=== PATIENT | male | born 1965 | race Caucasian/White ===

== ENCOUNTER 2017-09-06 06:28 | Observation (INO) | payer OTHER, SELFPAY ==
[2017-09-06] VITALS (10 sets, daily range): BP systolic 103–155; BP diastolic 70–104; PULSE 79–106; RESP 16–26; TEMP 37.1–37.3; O2SAT 95–98; BMI 36.6; BMI 35.9
--- NOTE | 2017-09-06 06:50 | EKG12_ITS ---
Test Reason : CHEST PAIN Blood Pressure : / mmHG Vent. Rate : 104 BPM Atrial Rate : 104 BPM P-R Int : 152 ms QRS Dur : 096 ms QT Int : 340 ms P-R-T Axes : 031 018 012 degrees QTc Int : 447 ms Sinus tachycardia Otherwise normal ECG Confirmed by NISHANT BAKER, ELISEO ([id number]), publications editor PITER YUAN ([id number] on 09/09/2017 3:05:36 PM Referred By: NEERU Confirmed By:ELISEO DILLARD MD
--- NOTE | 2017-09-06 06:50 | RAD_ITS ---
STUDY: X-RAY CHEST REASON FOR EXAM: Male, 52 years old. Left-sided chest pain, arm pain TECHNIQUE: Single AP portable view of the chest. COMPARISON: None. FINDINGS: The lungs are clear and expanded. There is no demonstrated pleural abnormality. Normal size heart. Normal mediastinum and dax. Normal visualized pulmonary arteries. Normal visualized aortic arch and descending thoracic aorta. Normal visualized thoracic spine. Normal visualized ribs, clavicles, and shoulders. There is no demonstrated abnormality of the visualized soft tissue structures of the upper abdomen. RAD/Chest 1 View (Portable) IMPRESSION: No acute cardiopulmonary disease. Electronically Signed: Adrian Ibarra DO at 7:52 EDT , Service support ,
[2017-09-06 07:00] LABS: Absolute Lymphocyte Count 2.04 X10^3/ul (0.83-4.51); Absolute Neutrophil Count 8.8 X10^3/uL (2.0-7.7); Basophil# 0.03 X10^3/uL; Basophil% 0.2 % (0-1); Eosinophil# 0.13 X10^3/uL; Eosinophils% 1.1 % (0-5); Hematocrit 38.9 % (40-54); Hemoglobin 12.9 g/dl (13.0-16.5); Lymphocyte # 2.04 X10^3/ul (4.0); Lymphocyte % 16.8 % (19-41); Mean Corp Hgb Conc 33.2 g/gl (32-36); Mean Corpuscular Hgb 28.3 pg (27.0-32.0); Mean Corpuscular Volume 85.3 fL (80-94); Mean Platelet Vol. 10.8 fl (6.2-12.0); Monocyte# 1.11 X10^3/uL; Monocyte% 9.1 % (0-10); Neutrophil % 72.5 % (47-70); Platelet Count 227 K/mm3 (150-450); RBC Distribution Width CV 13.7 % (11.6-14.6); RBC Distribution Width SD 42.3 fl (35.1-43.9); Red Blood Count 4.56 M/mm3 (4.6-6.2); White Blood Count 12.2 K/mm3 (4.4-11.0)
[2017-09-06 07:01] LABS: POSITIVE COUNT NO; POSITIVE DIFFERENTIAL NO; POSITIVE MORPHOLOGY NO
--- NOTE | 2017-09-06 07:13 | ED.DCSUM_ITS ---
- ER Visit Summary Date of Service: 09/06/17 Chief Complaint: Chest pain History of Present Illness: The patient is a 52 M midsternal sharp chest pain radiating down his left arm awakening him at 2:30 AM. States became clammy therefore called EMS. Denies dyspnea or nausea. History of hypertension, diabetes, hypercholesterolemia, family history and dad sides with MIs. Denies tobacco history. No history of stress test. States pain in his arm is 7 out of 10, pain his chest is 5 out of 10. No PE risk factors. Does not take aspirin daily. Patient does report doing activities yesterday with lifting, however denies any pain with palpation in his chest. Physical Examination: General: Alert and oriented ?3, no acute distress HEENT: Normocephalic, atraumatic. Moist mucosa membranes Neck: supple, nontender. Cardiovascular: Regular rate and rhythm, no murmurs. No chest wall tenderness. Respiratory: Normal breath sounds, symmetric, no distress Abdomen: Soft, nontender, nondistended Extremities: Nontender, no edema, pulses intact ?4 Neuro: no focal neurological deficits. Test Results: EKG: Sinus rate of 105, no ST or T-wave changes. Emergency Department Course and Treatment: Patient evaluated, EKG sinus rate of 105. Given aspirin and nitro. Cardiac workup initiated. Pending labs and chest x-ray. Patient signed out to morning physician. With risk factors will likely need admission for further cardiac rule out. Treatment Plan: [] Disposition: Likely admission Impression: Acute chest pain This note was generated with [employer] dictation software. It may contain incorrect words, spelling, and punctuation that were not noted in review of the chart prior to signing ED Disposition - Plan for ED Patient: Chief Complaint: Chest Pain Referrals: Tammy Ruth NP-C [Primary Care Provider] -
[2017-09-06 07:34] LABS: Anion Gap 10 (5-15); BUN 23 mg/dL (7-18); BUN/Creat Ratio 18.4 RATIO (10-20); Chloride 99 mmol/L (98-107); Creatinine, Serum 1.25 mg/dL (0.70-1.30); EST Glomerular Filtration Rate 64 mL/min (>60); Est Glom Filt Rate - Afr Amer 78 mL/min (>60); Estimated Creatinine Clearance 78.12 ml/min; Glucose 223 mg/dL (74-106); Potassium 3.9 mmol/L (3.5-5.1); Sodium Level 137 mmol/L (136-145)
--- NOTE | 2017-09-06 08:49 | ED.RN ---
PT DENIES NEEDING PAIN MEDS AT THIS TIME
--- NOTE | 2017-09-06 08:51 | HP.PCM_ITS ---
Problem List (1) Chest pain Status: Acute (2) Hypertension Status: Chronic (3) Diabetes mellitus Status: Chronic Qualifiers: Diabetes mellitus type: type 2 Diabetes mellitus penitentiary insulin use: without superintendent terminal use Diabetes mellitus complication status: with unspecified complications Qualified Code(s): E11.8 - Type 2 diabetes mellitus with unspecified complications History of Present Illness Date of Admission: 09/06/17 Chief Complaint: Chest pain - 1 day The patient is a 52 year old M with PMHx of hypertension, Type 2 DM, Morbid obesity who comes in with complains of chest pain. 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 He went home with left shoulder and arm pain that was persistent and did not seem to go away. Pain was not worse with exertion, was not located in the anterior chest. Around 3 AM, pain woke him up from sleep, it was substernal, radiated into the neck, shoulder and run down on the left to the wrist and through to the back in the left shoulder area. He got concerned and called the EMS and he was brought to the ED. Vitals as taken by the ED EMS team shows slightly elevated blood pressure but improvement on repeat checks. In the emergency room his temperature 99.2 F, pulse rate is 106, respiratory to 20, he was saturating 98% on room air. Routine blood work showed a RBC count of 12.2, Hb of 12.9, platelet count of 227 , his chemistries were unremarkable. Troponins ?3 were negative. Admitting chest x-ray shows no acute cardiopulmonary disease. Past Medical History Past Medical History (Chronic Problems): Chronic Problems Hypertension (Chronic) Diabetes mellitus (Chronic) Allergies No Known Allergies Allergy (Verified 09/06/17 06:32) Home Medications: Ambulatory Orders Medication Instructions Recorded Aspirin E.C. [Ecotrin] 81 mg PO DAILY@0800 #30 tab 09/06/17 Lisinopril/Hydrochlorothiazide 1 tab PO DAILY 09/06/17 [Zestoretic 20-12.5 mg Tablet] Metformin HCl [Glucophage] 1,000 mg PO BIDCM 09/06/17 Surgical History: no surgical history Psychiatric History: No pertinent psych hx Lives: With Family Smoking Status: Never smoker Tobacco Use: Non-smoker Alcohol: None Drugs: None - *Family History Maternal History Items: No pertinent history Paternal History Items: Heart Disease Review of Systems Constitutional: Denies: Anorexia, Chills, Fever, Malaise, Weakness, Weight Change Eyes: Denies: Blurred vision, Cataracts, Conjunctivae Inflammation, Double vision, Drainage HEENT: Denies: Difficulty Hearing, Difficulty Swallowing, Head Aches, Hearing Changes, Sinus Congestion, Sinus Drainage Cardiovascular: Denies: Chest Pain, Claudication, Chest Pressure, Orthopnea, Palpitations, Paroxysmal Noc. Dyspnea Respiratory: Denies: Cough, Hemoptysis, Shortness of breath at rest, Shortness of breath upon exertion, Sputum production Gastrointestinal: Denies: Abdominal Pain, Constipation, Hematemesis, Nausea, Vomiting Genitourinary: Denies: Dysuria Musculoskeletal: Denies: Joint Pain, Joint stiffness, Joint swelling, Joint Tenderness Skin: Denies: Pruritis, Rash, Wounds Neurological: Denies: Difficulty swallowing, Focal weakness, Numbness, Tingling Psychiatric: Denies: Anxiety, Depression, Homicidal Ideations, Suicidal Ideations Hematologic/ Lymphatic: Denies: Easy Bruising, Easy Bleeding VTE Information - Inpt Only VTE Present on Admission: No VTE Pharm Prophylaxis ordered?: Yes - Physical Exam General: Alert, Oriented x3, Cooperative, No apparent distress HEENT: Atraumatic, PERRLA, EOMI, Normocephalic Neck: Supple Lungs: Clear to auscultation, Normal air movement Cardiovascular: Regular rate, Regular Rhythm, Normal S1, Normal S2, No murmurs Abdomen: Bowel Sounds Present, Soft, Non Tender, Non-Distended, No Hepato- splenomegaly Extremities: No edema Skin: No rashes, No breakdown Musculoskeletal: No Tenderness to Palpation of Joints or Extremities Lymphatic: No Cervical, Supraclavicular, or Inguinal Adenopathy Neurological: Cranial nerves II-XII grossly intact, Neuro grossly intact Psych/Mental Status: Normal Affect, Appropriate Vital Signs Temp Pulse Resp BP Pulse Ox 99.2 F H 98 25 H 134/80 H 95 09/06/17 06:29 09/06/17 08:08 09/06/17 08:08 09/06/17 08:08 09/06/17 08:08 Oxygen Flow Rate (L/min) 2 Oxygen Delivery Method Room Air Weight: 125.9 kg Body Mass Index (BMI) 36.6 Laboratory Tests Past 24 Hrs 09/06/17 09/06/17 06:40 06:40 WBC 12.2 H RBC 4.56 L Hgb 12.9 L Hct 38.9 L MCV 85.3 MCH 28.3 MCHC 33.2 RDW 13.7 RDW Differential 42.3 Plt Count 227 MPV 10.8 Immature Gran % (Auto) 0.300 Neut % (Auto) 72.5 H Lymph % (Auto) 16.8 L Evangeline % (Auto) 9.1 Eos % (Auto) 1.1 Baso % (Auto) 0.2 Absolute Neuts (auto) 8.8 H Absolute Lymphs (auto) 2.04 Total Counted Not Reportable Sodium 137 Potassium 3.9 Chloride 99 Carbon Dioxide 28.0 Anion Gap 10 BUN 23 H Creatinine 1.25 Estim Creat Clear Calc 78.12 Est GFR (MDRD) Af Amer 78 Est GFR (MDRD) Non-Af 64 BUN/Creatinine Ratio 18.4 Glucose 223 H Calcium 9.0 Troponin I < 0.015 Assessment/Plan All Active Problems Chest pain (Acute) The patient is a 52 year old M with PMHx of hypertension, Type 2 DM, Morbid obesity who comes in with complains of chest pain. 1. Chest pain, atypical, in a patient with known risk factors, no acute EKG changes, troponins are negative, Plan: Mid to PCU, monitor on telemetry, aspirin 81 mg p.o. daily, patient will be going for stress test 2. Hypertension, controlled at the time of admission, continue on home medication 3. Type II DM, on metformin, continue with Accu-Cheks and insulin sliding scale 4. DVT PPx- Lovenox SC Code Visit OBSV E&M: 42871 Initial observation care L3
--- NOTE | 2017-09-06 09:01 | NURSING ---
CALLED KONRAD IN ER TO LET KNOW IS OKAY TO SEND PT UP.
--- NOTE | 2017-09-06 09:24 | EKG12_ITS ---
Test Reason : CP ADMISSION Blood Pressure : / mmHG Vent. Rate : 099 BPM Atrial Rate : 099 BPM P-R Int : 148 ms QRS Dur : 096 ms QT Int : 354 ms P-R-T Axes : 031 017 002 degrees QTc Int : 454 ms Normal sinus rhythm Confirmed by MP BAKER, IDRIS ([id number]), continuity editor PITER YUAN ([id number]) on 09/11/2017 9:27:54 AM Referred By: BONILLA Confirmed By:IDRIS GRESHAM MD
[2017-09-06] MEDS: HYDROCHLOROTHIAZIDE 12.5 MG CAPSULE PO (11:59)
[2017-09-06] MEDS: Lisinopril 20 MG Tablet PO (11:59)
[2017-09-06 12:11] LABS: Bedside Glucose 207 mg/dL (70-110)
[2017-09-06] MEDS: Insulin Lispro 100 UNIT/ML INSULN.PEN SQ (12:11)
--- NOTE | 2017-09-06 12:53 | STRESSREP ---
Stress Test Report Date: 09/06/2017 Procedure: Exercise tolerance test/imaging study Indications: Chest pain Consent: Per the patient Procedure: The patient exercised on a Kojo protocol for 9 minutes completing Stage III achieving a peak heart rate of 169 bpm (100 % predicted maximal heart rate) with a peak blood pressure 164/68 mmHg and a peak MET capacity of 10 METs. The baseline ECG demonstrated normal sinus rhythm with nonspecific T-wave abnormality. The peak exercise ECG demonstrated approximately 0.5-1.0 mm of downsloping/horizontal ST segment depression in leads II, III, aVF, and V3 through V6 with associated nonspecific T-wave abnormality with gradual resolution towards baseline in recovery. There were no cardiac dysrhythmias pretest, during exercise, or recovery. The functional capacity was considered good. There was no complaint of chest discomfort during exercise or recovery. The examination was discontinued secondary to leg discomfort. Impression: 1. Technically adequate (percent predicted maximal heart rate greater than 85%) exercise tolerance test 2. Peak exercise ECG demonstrated approximately 0.5-1.0 mm of downsloping/horizontal ST segment depression in leads II, III, aVF, and V3 through V6 associated with nonspecific T-wave abnormality with gradual resolution towards baseline in recovery 3. There were no cardiac dysrhythmias pretest, during exercise, or recovery. 4. Nuclear images pending Myocardial perfusion imaging study: Technique: The patient was injected with 12.1 mCi of technetium 99m Cardiolite and subsequently rest SPECT Cardiolite nuclear imaging was obtained in the horizontal long, vertical long, and short axis views. The patient exercised on a Kojo protocol for 9 minutes completing Stage III achieving a peak heart rate of 169 bpm (100 % predicted maximal heart rate) with a peak blood pressure 164/68 mmHg and a peak MET capacity of 10 METs. The patient was injected with 36.5 mCi of technetium 99m Cardiolite and subsequently stress SPECT Cardiolite nuclear imaging was obtained in the horizontal long, vertical long, and short axis views. A gated Cardiolite study at peak stress was obtained. Interpretation: Rest and stress SPECT Cardiolite nuclear imaging status post realignment, normalization, pre-attenuation correction and post attenuation correction, demonstrates at rest the appearance of diminished tracer uptake in all the basal to mid segments and the distal anterior/anterior apical segments which appeared to normalize following stress. There is end systolic thickening and brightening. The gated Cardiolite study demonstrates myocardial thickening and inward wall motion. The reported LVEF is 60 %. Impression: 1. Rest and stress SPECT Cardiolite nuclear imaging demonstrate on both pre-attenuation correction and post attenuation correction images the appearance of diminished tracer uptake in all the basal to mid segments and the distal anterior/anterior apical segments at rest which appear to normalize following stress appearing compatible with shifting soft tissue attenuation/artifact with no myocardial perfusion changes consider diagnostic for associated stress-induced myocardial ischemia. 2. The gated Cardiolite study reports an LVEF of 60 %. This note was generated with [employer] software. It may contain incorrect words, spelling, and punctuation that were not noted in checking the note before signing.
--- NOTE | 2017-09-06 13:02 | STRESSREP_ITS ---
Stress Test Report Date: 09/06/2017 Procedure: Exercise tolerance test/imaging study Indications: Chest pain Consent: Per the patient Procedure: The patient exercised on a Kojo protocol for 9 minutes completing Stage III achieving a peak heart rate of 169 bpm (100 % predicted maximal heart rate) with a peak blood pressure 164/68 mmHg and a peak MET capacity of 10 METs. The baseline ECG demonstrated normal sinus rhythm with nonspecific T-wave abnormality. The peak exercise ECG demonstrated approximately 0.5-1.0 mm of downsloping/horizontal ST segment depression in leads II, III, aVF, and V3 through V6 with associated nonspecific T-wave abnormality with gradual resolution towards baseline in recovery. There were no cardiac dysrhythmias pretest, during exercise, or recovery. The functional capacity was considered good. There was no complaint of chest discomfort during exercise or recovery. The examination was discontinued secondary to leg discomfort. Impression: 1. Technically adequate (percent predicted maximal heart rate greater than 85% ) exercise tolerance test 2. Peak exercise ECG demonstrated approximately 0.5-1.0 mm of downsloping/ horizontal ST segment depression in leads II, III, aVF, and V3 through V6 associated with nonspecific T-wave abnormality with gradual resolution towards baseline in recovery 3. There were no cardiac dysrhythmias pretest, during exercise, or recovery. 4. Nuclear images pending Myocardial perfusion imaging study: Technique: The patient was injected with 12.1 mCi of technetium 99m Cardiolite and subsequently rest SPECT Cardiolite nuclear imaging was obtained in the horizontal long, vertical long, and short axis views. The patient exercised on a Kojo protocol for 9 minutes completing Stage III achieving a peak heart rate of 169 bpm (100 % predicted maximal heart rate) with a peak blood pressure 164/ 68 mmHg and a peak MET capacity of 10 METs. The patient was injected with 36.5 mCi of technetium 99m Cardiolite and subsequently stress SPECT Cardiolite nuclear imaging was obtained in the horizontal long, vertical long, and short axis views. A gated Cardiolite study at peak stress was obtained. Interpretation: Rest and stress SPECT Cardiolite nuclear imaging status post realignment, normalization, pre-attenuation correction and post attenuation correction, demonstrates at rest the appearance of diminished tracer uptake in all the basal to mid segments and the distal anterior/anterior apical segments which appeared to normalize following stress. There is end systolic thickening and brightening. The gated Cardiolite study demonstrates myocardial thickening and inward wall motion. The reported LVEF is 60 %. Impression: 1. Rest and stress SPECT Cardiolite nuclear imaging demonstrate on both pre- attenuation correction and post attenuation correction images the appearance of diminished tracer uptake in all the basal to mid segments and the distal anterior/anterior apical segments at rest which appear to normalize following stress appearing compatible with shifting soft tissue attenuation/artifact with no myocardial perfusion changes consider diagnostic for associated stress- induced myocardial ischemia. 2. The gated Cardiolite study reports an LVEF of 60 %. This note was generated with [employer] software. It may contain incorrect words, spelling, and punctuation that were not noted in checking the note before signing.
--- NOTE | 2017-09-06 14:27 | PCM.DC ---
- Discharge Diagnoses Current Active Problems: Current Active and Chronic Problems Chest pain (Acute) Hypertension (Chronic) Diabetes mellitus (Acute) Reason(s) for Visit for Discharge Instructions: Chest pain You will use the following diet at home:: Calorie/Carbohydrate Controlled (specify 1200, 1400, etc), Cardiac Your food should be the consistency of: Regular Your liquids should be the consistency of: Regular/Thin Discharge Activity: Return to Normal Activity Allergies/Adverse Reactions: Allergies No Known Allergies Allergy (Verified 09/06/17 06:32) Medications to take at Discharge Aspirin E.C. [Ecotrin] 81 mg PO DAILY@0800 #30 tab 09/06/17 Lisinopril/Hydrochlorothiazide [Zestoretic 20-12.5 mg Tablet] 1 tab PO DAILY 09/06/17 Metformin HCl [Glucophage] 1,000 mg PO BIDCM 09/06/17 The following prescriptions were given: Aspirin E.C. [Ecotrin] 81 mg PO DAILY@0800 #30 tab Primary Care Physician: Tammy Ruth NP-C [Primary Care Provider] - Please follow up with your Primary Care Physician in: within 1-2 weeks Test Results: Test results from this visit will be discussed in further detail at your follow-up appointment, if applicable. Proposed Discharge Date: 09/06/17
--- NOTE | 2017-09-06 14:29 | PCM.DC.SUM ---
Discharge Date and Diagnosis Date of Admission: 09/06/17 Date of Discharge: 09/06/17 - Primary Discharge Diagnosis Active and Suspected Problems Chest pain (Acute) Leucocytosis - Secondary Discharge Diagnosis Chronic Problems Hypertension (Chronic) Type 2 DM Hospital Course and Treatment Imaging Results: 09/06/17 09:13 Nuclear Stress Test - Treadmil [NM] Routine None Operations: None Procedures: Stress test Summary of Care Provided: The patient is a 52 year old M with PMHx of hypertension, Type 2 DM, Morbid obesity who comes in with complains of chest pain. 1. Chest pain, atypical, in a patient with known risk factors, no acute EKG changes, troponins are negative, he was admitted to telemetry floor, underwent stress test that was negative, discharged on aspirin 81 mg p.o. daily. 2. Hypertension, controlled, continued on home medication 3. Type II DM, on metformin 4. Leucocytosis, present on admission, likely reactive. 5. Obesity, BMI 35.9, advised to lose weight and exercise. Discharge Diet: Low fat/ Low Cholesterol, 2000 Calorie Control Diet, 2000 mg Sodium Diet Discharge Activity: Return to Normal Activity Home Medications: Medications to take at Discharge Aspirin E.C. [Ecotrin] 81 mg PO DAILY@0800 #30 tab 09/06/17 Lisinopril/Hydrochlorothiazide [Zestoretic 20-12.5 mg Tablet] 1 tab PO DAILY 09/06/17 Metformin HCl [Glucophage] 1,000 mg PO BIDCM 09/06/17 Following Prescrptions Were Given to Patient: Aspirin E.C. [Ecotrin] 81 mg PO DAILY@0800 #30 tab Primary Care Physician: Tammy Ruth NP-C [Primary Care Provider] - Please follow up with your Primary Care Physician in: within 1-2 weeks Disposition: Home Minutes spent on discharge:: 35 Patient Condition:: Stable Medical Necessity - Tobacco Use Smoking Status: Never smoker Meaningful Use Info Meaningful Use Diagnoses (Choose all that apply): None applicable Code Visit OBSV E&M: 69303 Observation care discharge
== END 2017-09-06 15:00 | disposition home or self-care (01) ==
LOC: ED 08:01 → PCU 08:58
PROVIDERS: Admitting Provider Internal Medicine; Emergency Provider Emergency Medicine; Family Provider Nurse Practitioner Adult Health; PCP Nurse Practitioner Adult Health; Visit Provider Internal Medicine
DX: R07.89 Other chest pain (principal); I10 Essential (primary) hypertension; E11.9 Type 2 diabetes mellitus without complications; Z82.49 Family history of ischemic heart disease and other diseases of the circulatory system; Z79.899 Other long term (current) drug therapy; Z79.84 Long term (current) use of oral hypoglycemic drugs; E66.01 Morbid (severe) obesity due to excess calories; Z68.35 Body mass index [BMI] 35.0-35.9, adult; Z71.3 Dietary counseling and surveillance; M25.512 Pain in left shoulder; Z79.82 Long term (current) use of aspirin
CPT/HCPCS: 36415; 71045; 78452; 80048; 82962; 84484; 85025; 93005; 93017; 96360; 96361; 99218; 99285; A9500; J7030; J7040; A4216; G0378; J2785

== ENCOUNTER 2018-04-03 08:40 | Day surgery (SDC) | payer OTHER, SELFPAY ==
[2018-03-30 15:26] VITALS: BMI 35.9
[2018-04-03] VITALS (10 sets, daily range): BP systolic 114–142; BP diastolic 80–103; PULSE 97–113; RESP 16–18; TEMP 36.4–36.9; O2SAT 93–99; BMI 34.2
[2018-04-03 09:20] LABS: Bedside Glucose 129 mg/dL (70-110)
--- NOTE | 2018-04-03 10:08 | OP.ENDO_ITS ---
04/03/2018 Tammy Ruth Re : Colonoscopy procedure for Saeed Lyman Dear Faraz This procedure was performed on Tuesday, April 03, 2018. My impressions and recommendations are as follows: Impressions : - The entire examined colon is normal. - No specimens collected. Recommendations : - Discharge patient to home. - Resume previous diet. - Repeat colonoscopy in 10 years for screening purposes. - Continue present medications. My findings are described in the full procedure note, which is enclosed. If I can be of further assistance, please feel free to contact me at Doctor phone number(s): Work: . Sincerely, Jose Castaneda MD 04/03/2018 10:07:48 AM This report has been signed electronically.
== END 2018-04-03 10:55 | disposition home or self-care (01) ==
LOC: EN 08:41 → AC 08:41
PROVIDERS: Family Provider Nurse Practitioner Adult Health; PCP Nurse Practitioner Adult Health; Referring Provider Surgery; Visit Provider Surgery
PROC: 0DJD8ZZ Inspection of Lower Intestinal Tract, Via Natural or Artificial Opening Endoscopic (ICD-10-PCS; CPT 45378; principal; 2018-04-03 09:40)
DX: Z12.11 Encounter for screening for malignant neoplasm of colon (principal); E78.5 Hyperlipidemia, unspecified; I10 Essential (primary) hypertension; E11.9 Type 2 diabetes mellitus without complications; K40.20 Bilateral inguinal hernia, without obstruction or gangrene, not specified as recurrent
CPT/HCPCS: 45378; 82962; 99152; J7120

== ENCOUNTER 2018-05-04 07:59 | Day surgery (SDC) | payer OTHER, SELFPAY ==
[2018-04-03 09:08] VITALS: BMI 34.2
[2018-05-04 08:25] VITALS: BP 132/80; PULSE 96; RESP 18; TEMP 36.6; O2SAT 93; BMI 35.2
[2018-05-04 08:35] LABS: Anion Gap 5 (5-15); BUN 19 mg/dL (7-18); BUN/Creat Ratio 18.8 RATIO (10-20); Calcium,Total 8.8 mg/dL (8.5-10.1); Chloride 105 mmol/L (98-107); Creatinine, Serum 1.01 mg/dL (0.70-1.30); EST Glomerular Filtration Rate 82 mL/min (>60); Est Glom Filt Rate - Afr Amer 99 mL/min (>60); Glucose 167 mg/dL (74-106); Potassium 4.1 mmol/L (3.5-5.1); Sodium Level 137 mmol/L (136-145)
[2018-05-04 08:46] LABS: Bedside Glucose 175 mg/dL (70-110)
--- NOTE | 2018-05-04 10:19 | PCM.HP.STD ---
Problem List (1) Bilateral inguinal hernia Status: Acute Qualifiers: Obstruction and gangrene presence: without obstruction or gangrene Recurrence: non-recurrent Qualified Code(s): K40.20 - Bilateral inguinal hernia, without obstruction or gangrene, not specified as recurrent History of Present Illness Date of Admission: 05/04/18 The patient is a 53 year old M who presented to me for evaluation. He was having left scrotal pain and mass. On clinical evaluation in the office I detected actually a left larger than right inguinal hernia. He has some folliculitis of the pubic and groin area. He is overweight with a body weight of 164 pounds. I felt that a laparoscopic approach to his hernias would be pertinent. He otherwise states that his health has been stable since his office appointment. Past Medical History Past Medical History (Chronic Problems): Chronic Problems (Last Updated 03/30/18 @ 15:25 by Chula Charles) Hypertension (Chronic) Diabetes mellitus (Chronic) Medical History: Medical History (Last Updated 03/30/18 @ 15:25 by Chula Charles) Bilateral inguinal hernia (Acute) K40.20 Screening for intestinal cancer (Acute) Z12.10 Hyperlipidemia (Acute) E78.5 Chest pain (Acute) R07.9 Hypertension (Chronic) I10 Diabetes mellitus (Chronic) E11.9 Allergies rosuvastatin Adverse Reaction (Verified 04/28/18 13:53) Other MUSCLE CRAMPS Home Medications: Ambulatory Orders Medication Instructions Recorded Aspirin E.C. [Ecotrin] 81 mg PO DAILY@0800 #30 tab 09/06/17 Lisinopril/Hydrochlorothiazide 1 tab PO DAILY 09/06/17 [Zestoretic 20-12.5 mg Tablet] Metformin HCl [Glucophage] 1,000 mg PO BIDCM 09/06/17 allopurinol 300 mg tablet 300 mg PO DAILY 03/30/18 glimepiride 4 mg tablet 4 mg PO QAM 03/30/18 Surgical History: Surgical History (Last Updated 03/30/18 @ 15:26 by Chula Charles) History of colonoscopy Onset Date: ~1999 Z98.890 Status post anal fissurectomy Z98.890, Z87.19 Surgical History: no surgical history Psychiatric History: No pertinent psych hx Smoking Status: Never smoker - *Family History Maternal Family History: Family History (Last Updated 03/30/18 @ 15:26 by Chula Charles) Father Diabetes Hypertension History Items: No pertinent history Paternal Family History: Family History (Last Updated 03/30/18 @ 15:26 by Chula Charles) Father Diabetes Hypertension History Items: Heart Disease Review of Systems Constitutional: Denies: Anorexia HEENT: Denies: Difficulty Swallowing Cardiovascular: Denies: Chest Pain Respiratory: Denies: Cough Gastrointestinal: Denies: Abdominal Pain Genitourinary: Denies: Dysuria Musculoskeletal: Reports: - - 1 week old blunt trauma injury to his left proximal forearm Neurological: Denies: Balance problems Psychiatric: Denies: Anxiety Endocrine: Reports: Change in Body Habitus - Very slight intentional weight loss VTE Information - Inpt Only VTE Present on Admission: No - Physical Exam General: Alert, Oriented x3, Cooperative, No apparent distress HEENT: Atraumatic Oral: Moist Mucosa Neck: Supple Lungs: Clear to auscultation, Normal air movement Cardiovascular: Regular rate, Regular Rhythm Abdomen: Bowel Sounds Present, Soft, Non Tender, - - Testicles are descended bilaterally. Reducible bilateral inguinal hernias. Mild folliculitis of the groin but not extending onto the abdomen Skin: - - Left proximal dorsal forearm 3 cm long superficial laceration with eschar and minimal erythema Psych/Mental Status: Normal Affect Vital Signs Temp Pulse Resp BP Pulse Ox 98 F 96 18 132/80 H 93 05/04/18 08:25 05/04/18 08:25 05/04/18 08:25 05/04/18 08:25 05/04/18 08:25 Oxygen Delivery Method Room Air Weight: 266 lb 15.677 oz Body Mass Index (BMI) 35.2 Laboratory Tests Past 24 Hrs 05/04/18 08:20 Sodium 137 Potassium 4.1 Chloride 105 Carbon Dioxide 27.0 Anion Gap 5 BUN 19 H Creatinine 1.01 Est GFR (MDRD) Af Amer 99 Est GFR (MDRD) Non-Af 82 BUN/Creatinine Ratio 18.8 Glucose 167 H Calcium 8.8 POC Glucose 05/04/18 08:41 POC Glucose 175 H Assessment/Plan All Active Problems (Last Updated 03/30/18 @ 15:25 by Chula Charles) Bilateral inguinal hernia (Acute) Screening for intestinal cancer (Acute) Hyperlipidemia (Acute) Chest pain (Acute) I am proposing for the patient a laparoscopic bilateral inguinal hernia repair. He is aware that we will utilize mesh. We will keep the incisions up out of the groin. He has had an opportunity to ask and have questions answered. We will proceed as noted. Jose Castaneda M.D., F.A.C.S.
--- NOTE | 2018-05-04 10:27 | DCINST_ITS ---
Discharge Diet: Light diet - advance as tolerated - if you have questions about your diet instructions, please talk to you doctor. Discharge Activity: May Not Drive - for 3-5 days or while taking narcotic pain medicine. May shower in (days): 1 Lifting Restrictions: 10 pounds Call your doctor if your incision/area has: Continuous Slow Oozing, Sudden Increased Bleeding, Increased Pain/ Swelling, Increased Redness, Foul Smelling Discharge Call your doctor if you observe: Fever of 101 or Higher Suture Line Care: Avoid Pulling/Pushing, Avoid Pinching/Bending Additional Dressing/Incision Instructions:: Change or remove dressing in 4 days. Leave steri-strips in place for 1 week. Allergies/Adverse Reactions: Allergies rosuvastatin Adverse Reaction (Verified 04/28/18 13:53) Other MUSCLE CRAMPS Medications to take at Discharge Aspirin E.C. [Ecotrin] 81 mg PO DAILY@0800 #30 tab 09/06/17 Lisinopril/Hydrochlorothiazide [Zestoretic 20-12.5 mg Tablet] 1 tab PO DAILY 09/06/17 Metformin HCl [Glucophage] 1,000 mg PO BIDCM 09/06/17 allopurinol 300 mg tablet 300 mg PO DAILY 03/30/18 glimepiride 4 mg tablet 4 mg PO QAM 03/30/18 Hydrocodone Bitart/Apap 5-325 [[place] 5MG-325MG] 1 tablet PO Q4H PRN PRN 3 Days #10 tablet 05/04/18 The following prescriptions were given: Hydrocodone Bitart/Apap 5-325 [[place] 5MG-325MG] 1 tablet PO Q4H PRN PRN 3 Days #10 tablet PRN Reason: Pain Orders to be completed after discharge: Basic Metabolic Profile (BMP) Time Frame: 04/28/18, Location: Laboratory Primary Care Physician: Tammy Ruth NP-C [Primary Care Provider] - Test Results: Test results from this visit will be discussed in further detail at your follow- up appointment, if applicable. Please Follow Up With: Jose Castaneda MD - [phone] When: Call to make an appointment to be seen in about 10 days.
[2018-05-04] MEDS: Cefazolin 2 GM in 0.9% Normal Saline 100 ML IV (10:37)
--- NOTE | 2018-05-04 11:53 | PCM.OPRPT ---
Problem List (1) Bilateral inguinal hernia Status: Acute Qualifiers: Obstruction and gangrene presence: without obstruction or gangrene Recurrence: non-recurrent Qualified Code(s): K40.20 - Bilateral inguinal hernia, without obstruction or gangrene, not specified as recurrent Report of Operation Date of Procedure: 05/04/18 Pre-Operative Diagnosis: Bilateral inguinal hernias Post-Operative Diagnosis: Bilateral indirect inguinal hernias Surgery/Procedure Performed:: Laparoscopic bilateral inguinal herniorrhaphy. Right groin 3D Bard max large. Reference #[id number]. Lot number CHEMICAL [employer]ORAT[employer] TECHNICIAN [id number]. Expiry date 07/07/2022. Left 3 DMax large. Reference #[id number]. Lot number CHEMICAL LABORATORY TECHNICIAN [id number]. Expiry date 02/06/2023. Secure strap lot number [id number] expiry date 12/31/2019 Description of Surgical Findings:: Timeout and informed consent was obtained. 53-year-old gent was tracheal intubation anesthesia. Ancef 2 g given intravenously preoperatively. The abdomen sterilely prepped and draped. 0.5% Marcaine was used as a local anesthetic. Skin sites were pre-anesthetized. Throughout the procedure total 30 cc was used. A vertical infraumbilical incision was created holding sutures of 0 Vicryl placed varies from inserted saline drop test performed the abdomen was insufflated with CO2 to a pressure of 12 mmHg pressure. 10 mm trocar inserted. Similar laparoscope inserted. No evidence of any trocar injuries. Under direct visualization 5 mm ports were placed in the right left lower quadrants. Ileal inguinal nerve blocks were performed bilaterally. The peritoneum superior lateral to the internal ring on the left was incised carried immediately the peritoneum was completely dissected free the direct indirect and femoral areas having been identified. A larger indirect left inguinal hernia was identified as compared to the right a Bard 3D max large left mesh was placed so as to cover the defect. Was secured laterally and superiorly with secure strap. Then attention was drawn to the right groin. The peritoneum was similarly dissected free. The direct indirect and femoral area identified. A right-sided Bard 3D large mesh was selected it was placed so as to cover the defect area it was secured laterally and superiorly with a secure strap and then secured medially with the left-sided mesh with a secure strap. Excellent coverage was obtained bilaterally. The peritoneum was approximated to itself using hemo-lock clips and secure strap. Complete obliteration to the mesh was achieved. Trochars were removed under visualization. The abdomen was allowed to deflate of the CO2. The fascia at the umbilicus approximated with 0 Vicryl [id number] suture. Skin edges approximated interrupted 4 Monocryl subdermal stitches. Steri-Strips and Telfa and OpSite dressings applied. Sponge and instrument and needle counts were reported the surgery were correct. Specimens none. Drains none. Blood loss minimal. Jose Castaneda M.D., F.A.C.S. Type of Anesthesia:: General Anesthesiologist: Brigitte Fontanez
[2018-05-04] MEDS: Bupivacaine Mpf 0.5% 30 ML VIAL (11:56)
--- NOTE | 2018-05-04 12:00 | OP.PCM_ITS ---
Problem List (1) Bilateral inguinal hernia Status: Acute Qualifiers: Obstruction and gangrene presence: without obstruction or gangrene Recurrence: non-recurrent Qualified Code(s): K40.20 - Bilateral inguinal hernia, without obstruction or gangrene, not specified as recurrent Report of Operation Date of Procedure: 05/04/18 Pre-Operative Diagnosis: Bilateral inguinal hernias Post-Operative Diagnosis: Bilateral indirect inguinal hernias Surgery/Procedure Performed:: Laparoscopic bilateral inguinal herniorrhaphy. Right groin 3D Bard max large. Reference #[id number]. Lot number PERSONAL DRIVER [id number]. Expiry date 07/07/2022. Left 3 DMax large. Reference #[id number]. Lot number PERSONAL DRIVER [id number]. Expiry date 02/06/2023. Secure strap lot number [id number] expiry date 12/31/2019 Description of Surgical Findings:: Timeout and informed consent was obtained. 53-year-old gent was tracheal intubation anesthesia. Ancef 2 g given intravenously preoperatively. The abdomen sterilely prepped and draped. 0.5% Marcaine was used as a local anesthetic. Skin sites were pre-anesthetized. Throughout the procedure total 30 cc was used. A vertical infraumbilical incision was created holding sutures of 0 Vicryl placed varies from inserted saline drop test performed the abdomen was insufflated with CO2 to a pressure of 12 mmHg pressure. 10 mm trocar inserted. Similar laparoscope inserted. No evidence of any trocar injuries. Under direct visualization 5 mm ports were placed in the right left lower quadrants. Ileal inguinal nerve blocks were performed bilaterally. The peritoneum superior lateral to the internal ring on the left was incised carried immediately the peritoneum was completely dissected free the direct indirect and femoral areas having been identified. A larger indirect left inguinal hernia was identified as compared to the right a Bard 3D max large left mesh was placed so as to cover the defect. Was secured laterally and superiorly with secure strap. Then attention was drawn to the right groin. The peritoneum was similarly dissected free. The direct indirect and femoral area identified. A right-sided Bard 3D large mesh was selected it was placed so as to cover the defect area it was secured laterally and superiorly with a secure strap and then secured medially with the left-sided mesh with a secure strap. Excellent coverage was obtained bilaterally. The peritoneum was approximated to itself using hemo-lock clips and secure strap. Complete obliteration to the mesh was achieved. Trochars were removed under visualization. The abdomen was allowed to deflate of the CO2. The fascia at the umbilicus approximated with 0 Vicryl [id number] suture. Skin edges approximated interrupted 4 Monocryl subdermal stitches. Steri-Strips and Telfa and OpSite dressings applied. Sponge and instrument and needle counts were reported the surgery were correct. Specimens none. Drains none. Blood loss minimal. Jose Castaneda M.D., F.A.C.S. Type of Anesthesia:: General Anesthesiologist: Brigitte Fontanez
[2018-05-04 12:11] VITALS: BP 132/80; BP 137/95; PULSE 87; RESP 16; TEMP 36.3; O2SAT 95
[2018-05-04 12:15] VITALS: BP 132/100; BP 132/80; PULSE 88; RESP 18; O2SAT 96
[2018-05-04 12:26] LABS: Bedside Glucose 156 mg/dL (70-110)
[2018-05-04 12:30] VITALS: BP 127/92; BP 132/80; PULSE 88; RESP 18; O2SAT 95
[2018-05-04 12:45] VITALS: BP 125/84; BP 132/80; PULSE 88; RESP 18; TEMP 36.6; O2SAT 93
[2018-05-04] MEDS: HYDROcodone Bitartrate/Apap 5/325 Tablet PO (14:29)
[2018-05-04 15:07] VITALS: BP 132/78; BP 132/80; PULSE 70; RESP 18; TEMP 36.9; O2SAT 100
== END 2018-05-04 15:09 | disposition home or self-care (01) ==
LOC: SDC 07:59 → AC 08:00
PROVIDERS: Anesthesiology; Family Provider Nurse Practitioner Adult Health; PCP Nurse Practitioner Adult Health; Referring Provider Surgery; Visit Provider Surgery
PROC: (CPT 49650; principal; 2018-05-04 10:00)
DX: K40.20 Bilateral inguinal hernia, without obstruction or gangrene, not specified as recurrent (principal); L73.9 Follicular disorder, unspecified; I10 Essential (primary) hypertension; E11.9 Type 2 diabetes mellitus without complications; E78.5 Hyperlipidemia, unspecified; Z79.82 Long term (current) use of aspirin
CPT/HCPCS: 00840; 49650; 36415; 80048; 82962; J7120; C1781; J2405

== ENCOUNTER → 2018-08-04 11:25 | Outpatient (CLI) | payer OTHER, SELFPAY ==
[2018-08-04 14:09] LABS: CRP < 2.90 mg/L (0.0-3.0)
[2018-08-04 15:22] LABS: Erythrocyte Sedimentation Rate 7 mm/hr (0-20)
[2018-08-04 15:26] LABS: Absolute Lymphocyte Count 2.73 X10^3/ul (0.83-4.51); Absolute Neutrophil Count 4.1 X10^3/uL (2.0-7.7); Basophil# 0.04 X10^3/uL; Basophil% 0.5 % (0-1); Eosinophil# 0.15 X10^3/uL; Hematocrit 45.4 % (40-54); Lymphocyte # 2.73 X10^3/ul (4.0); Lymphocyte % 35.9 % (19-41); Mean Corpuscular Hgb 28.5 pg (27.0-32.0); Mean Corpuscular Volume 86.1 fL (80-94); Mean Platelet Vol. 11.6 fl (6.2-12.0); Monocyte# 0.58 X10^3/uL; Monocyte% 7.6 % (0-10); Neutrophil # 4.05 X10^3/uL (2.7-7.7); Neutrophil % 53.2 % (47-70); POSITIVE COUNT NO; POSITIVE DIFFERENTIAL NO; POSITIVE MORPHOLOGY NO; Platelet Count 224 K/mm3 (150-450); RBC Distribution Width CV 13.2 % (11.6-14.6); RBC Distribution Width SD 41.6 fl (35.1-43.9); Red Blood Count 5.27 M/mm3 (4.6-6.2); White Blood Count 7.6 K/mm3 (4.4-11.0)
== END ==
PROVIDERS: Family Provider Nurse Practitioner Adult Health; PCP Nurse Practitioner Adult Health; Referring Provider Ophthalmology; Visit Provider Ophthalmology
DX: H34.8110 Central retinal vein occlusion, right eye, with macular edema (principal)
CPT/HCPCS: 36415; 85025; 85652; 86140

== ENCOUNTER → 2018-08-05 14:58 | Outpatient (CLI) | payer OTHER, SELFPAY ==
[2018-08-07 11:33] LABS: Toxoplasma Gondii IgM < 3.0 AU/mL (0.0-7.9)
[2018-08-11 14:08] LABS: B. henselae IgG Negative titer (Neg:<1:320); B. henselae IgM Negative titer (Neg:<1:100); B. quintana IgG Negative titer (Neg:<1:320); QNTFERON TB Mitogen Value > 10.00 IU/mL (.); QNTFERON TB Nil Value 0.02 IU/mL (.); QNTFERON TB1+ Ag Value 0.02 IU/mL (.); QNTFERON TB2+ Ag Value 0.01 IU/mL (.)
[2018-08-11 16:09] LABS: Acetylcholine Receptor Binding < 0.03 nmol/L (0.00-0.24); B. quintana IgM Negative titer (Neg:<1:100); QNTIFERON TB Positive Criteria Negative (Negative); Toxoplasma Gondii IgG < 3.0 IU/mL (0.0-7.1)
== END ==
PROVIDERS: Family Provider Nurse Practitioner Adult Health; PCP Nurse Practitioner Adult Health
DX: H47.10 Unspecified papilledema (principal)
CPT/HCPCS: 36415; 84238; 86480; 86611; 86777; 86778

== ENCOUNTER → 2018-08-06 14:53 | Outpatient (CLI) | payer OTHER, SELFPAY ==
--- NOTE | 2018-08-06 14:54 | RAD_ITS ---
STUDY: X-RAY CHEST REASON FOR EXAM: Male, 53 years old. TECHNIQUE: 1 view COMPARISON: September 06, 2017 FINDINGS: The heart is not enlarged. The lung garcia and costophrenic angles are clear. There is prominence of the pulmonary arteries. No pleural effusion or pneumothorax noted. The visualized bony structures are intact. The trachea is in the midline. IMPRESSION: Negative chest for active disease and changed since September 06, 2017 RAD/Chest PA and Lateral IMPRESSION: Normal x-ray examination of the chest. Electronically Signed: Mariaelena Albert, at 15:57 EDT Tel , Service support ,
== END ==
PROVIDERS: Family Provider Nurse Practitioner Adult Health; PCP Nurse Practitioner Adult Health
DX: Z11.1 Encounter for screening for respiratory tuberculosis (principal)
CPT/HCPCS: 71046